=== PATIENT | male | born 1960 | race Caucasian/White ===

== ENCOUNTER 2017-09-21 16:02 | Emergency (ER) | payer BC ==
[~2017-09-21] VITALS: Ht 175.3 cm; Wt 74.5 kg
[2017-09-21 16:33] LABS: BASOPHIL (%) 0.5 % (0-1); BASOPHIL COUNT 0.1 K/uL (0-0.1); EOSINOPHIL (%) 3.9 % (0-5); EOSINOPHIL COUNT 0.4 K/uL (0-0.3); HEMATOCRIT 46.3 % (38.0-50.0); HEMOGLOBIN 15.9 G/DL (12.5-16.6); IMMATURE GRANULOCYTE (%) 0.3 % (0.0-0.7); LYMPHOCYTE (%) 21.2 % (15-42); MCHC 34.3 G/DL (30.0-36.0); MCV 98.9 FL (86-99); MONOCYTE (%) 8.4 % (3-12); MONOCYTE COUNT 0.8 K/uL (0-0.8); NEUTROPHIL (%) 65.7 % (45-76); NEUTROPHIL COUNT 6.1 K/uL (1.8-6.4); PLATELET COUNT 216 K/uL (156-360); RBC DIS.WIDTH-CV 12.5 % (11.8-14.6); RBC DIS.WIDTH-SD 45.5 % (39-53); RED BLOOD COUNT 4.68 M/uL (4.00-5.50); WHITE BLOOD COUNT 9.3 K/uL (4.1-10.2)
[2017-09-21 16:48] LABS: CHLORIDE 105 mEq/L (99-109); POTASSIUM 3.7 mEq/L (3.7-5.4); SODIUM 140 mEq/L (136-147)
[2017-09-21 16:50] LABS: GLUCOSE 98 mg/dL (70-99)
[2017-09-21 16:54] LABS: CREATININE 1.2 mg/dL (0.6-1.3)
[2017-09-21 16:55] LABS: UREA NITROGEN (BUN) 18 mg/dL (9-23)
[2017-09-21 17:04] LABS: GFR ESTIMATE (CALCULATED) > 59 mL/min/ (58.99-99999)
[2017-09-21 17:06] LABS: APPEARANCE CLEAR ((CLEAR)); BILIRUBIN NEGATIVE; BLOOD MODERATE; COLOR YELLOW ((YELLOW)); GLUCOSE (STRIP) NEGATIVE; KETONES 5; LEUKOCYTES NEGATIVE; NITRITE NEGATIVE; PROTEIN (STRIP) 30; SPECIFIC GRAVITY 1.029 (1.000-1.030); UROBILINOGEN 0.2 MG/DL (0.2-1.0)
[2017-09-21 17:10] LABS: BACTERIA NONE SEEN /HPF; EPITHELIAL CELLS RARE /HPF; MUCUS TRACE /LPF; RED BLOOD CELLS 0-5 /HPF (0-5); UCUL ADDED? NO; WHITE BLOOD CELLS 0-5 /HPF (0-5)
[2017-09-21 19:45] LABS: ALBUMIN 4.2 g/dL (3.2-4.8)
[2017-09-21 19:47] LABS: TOTAL PROTEIN 6.9 g/dL (6.4-8.3)
[2017-09-21 19:49] LABS: TOTAL BILIRUBIN 0.7 mg/dL (0.0-1.0)
[2017-09-21 19:50] LABS: ALKALINE PHOSPHATASE 88 IU/L (3-129)
[2017-09-21 19:53] LABS: ALT (GPT) 42 IU/L (3-49); AST (GOT) 38 IU/L (2-34); DIRECT BILIRUBIN 0.3 mg/dL (0.0-0.3)
[2017-09-21 19:54] LABS: CREATINE KINASE 88 IU/L (1-294); LIPASE 6 U/L (1.0-51.0)
[2017-09-21] MEDS ORDERED: PERCOCET 5/31 TABLET PO (21:48)
[2017-09-21] MEDS ORDERED: PREDNISONE20 MG PO (21:48)
[2017-09-21] MEDS ORDERED: LIDODERM 5% P1 PATCH TD (21:48)
[2017-09-21 22:09] VITALS: BP 137/91
== END 2017-09-21 22:11 | disposition home or self-care (01) ==
LOC: EME 16:02
DX: M54.16 Radiculopathy, lumbar region (principal); K82.8 Other specified diseases of gallbladder; I10 Essential (primary) hypertension; Z98.890 Other specified postprocedural states; Z88.6 Allergy status to analgesic agent
CPT/HCPCS: 74176; 76870; 80048; 80076; 81003; 82550; 83690; 85025; 99281; 99284; J2270; J7512

== ENCOUNTER 2017-11-27 01:04 | Observation (INO) | payer BC ==
[~2017-11-27] VITALS: Ht 175.3 cm; Wt 74.4 kg
[~2017-11-27 01:04] MED LIST: LIDODERM 5% P1 PATCH TD; PERCOCET 5/31 TABLET PO; PREDNISONE20 MG PO
[2017-11-27 01:25] LABS: HEMATOCRIT 41.7 % (38.0-50.0); HEMOGLOBIN 14.7 G/DL (12.5-16.6); MCHC 35.3 G/DL (30.0-36.0); MCV 96.5 FL (86-99); PLATELET COUNT 222 K/uL (156-360); RBC DIS.WIDTH-CV 11.6 % (11.8-14.6); RBC DIS.WIDTH-SD 41.3 % (39-53); RED BLOOD COUNT 4.32 M/uL (4.00-5.50); WHITE BLOOD COUNT 12.4 K/uL (4.1-10.2)
[2017-11-27 01:33] LABS: ALBUMIN 3.9 g/dL (3.2-4.8)
[2017-11-27 01:34] LABS: CHLORIDE 107 mEq/L (99-109); SODIUM 136 mEq/L (136-147)
[2017-11-27 01:36] LABS: GLUCOSE 142 mg/dL (70-99); TOTAL PROTEIN 6.5 g/dL (6.4-8.3)
[2017-11-27 01:38] LABS: TOTAL BILIRUBIN 0.7 mg/dL (0.0-1.0)
[2017-11-27 01:39] LABS: ALKALINE PHOSPHATASE 115 IU/L (3-129)
[2017-11-27 01:40] LABS: CREATININE 1.3 mg/dL (0.6-1.3); GFR ESTIMATE (CALCULATED) > 59 mL/min/ (58.99-99999)
[2017-11-27 01:41] LABS: AST (GOT) 27 IU/L (2-34); UREA NITROGEN (BUN) 42 mg/dL (9-23)
[2017-11-27 01:43] LABS: ALT (GPT) 41 IU/L (3-49)
[2017-11-27 01:48] LABS: APPEARANCE TURBID ((CLEAR)); BILIRUBIN NEGATIVE; BLOOD LARGE; COLOR YELLOW ((YELLOW)); GLUCOSE (STRIP) NEGATIVE; KETONES NEGATIVE; LEUKOCYTES NEGATIVE; NITRITE NEGATIVE; PROTEIN (STRIP) 30; SPECIFIC GRAVITY 1.025 (1.000-1.030); UROBILINOGEN 0.2 MG/DL (0.2-1.0)
[2017-11-27 02:11] LABS: BACTERIA 2+ /HPF; EPITHELIAL CELLS NONE SEEN /HPF; MUCUS NONE SEEN /LPF; RED BLOOD CELLS TNTC /HPF (0-5); UCUL ADDED? YES; WHITE BLOOD CELLS NONE SEEN /HPF (0-5)
[2017-11-27 02:12] LABS: URIC ACID CRYSTALS 3+ /HPF
[2017-11-27] MEDS ORDERED: LISINOPRIL10 MG PO (02:33)
[2017-11-27] MEDS ORDERED: HYDROCHLOROTH12.5 M3 PO (02:33)
[2017-11-27] MEDS ORDERED: FLOMAX0.4 MG PO (03:53)
[2017-11-27] MEDS ORDERED: PERCOCET 5/31 TABLET PO (03:53)
[2017-11-27 07:16] VITALS: BP 132/76
[2017-11-27] MEDS ORDERED: COZAAR50 MG PO (10:08)
[2017-11-27] MEDS ORDERED: ZANTAC150 MG PO (10:08)
[2017-11-27] MEDS ORDERED: ZYRTEC10 M3 PO (10:08)
[2017-11-27 13:20] VITALS: BP 134/80
[2017-11-27 16:00] VITALS: BP 134/66
[2017-11-27 19:49] VITALS: BP 131/69
[2017-11-28 00:20] VITALS: BP 122/68
[2017-11-28 04:28] VITALS: BP 133/69
[2017-11-28 07:27] VITALS: BP 132/71
[2017-11-28 08:18] LABS: HEMATOCRIT 38.5 % (38.0-50.0); MCH 33.1 PG (29.0-34.0); MCHC 32.7 G/DL (30.0-36.0); PLATELET COUNT 165 K/uL (156-360); RBC DIS.WIDTH-CV 11.9 % (11.8-14.6); RBC DIS.WIDTH-SD 44.1 % (39-53); RED BLOOD COUNT 3.81 M/uL (4.00-5.50); WHITE BLOOD COUNT 9.1 K/uL (4.1-10.2)
[2017-11-28 08:20] LABS: HEMOGLOBIN 12.6 G/DL (12.5-16.6)
[2017-11-28 08:50] LABS: CHLORIDE 111 MEQ/L (99-109); CREATININE 1.3 MG/DL (0.6-1.3); GFR ESTIMATE (CALCULATED) > 59 mL/min/ (58.99-99999); GLUCOSE 95 mg/dL (70-99); POTASSIUM 4.9 MEQ/L (3.7-5.4); SODIUM 139 MEQ/L (136-147); UREA NITROGEN (BUN) 24 mg/dL (9-23)
[2017-11-28 12:05] VITALS: BP 127/74
[2017-11-28] MEDS ORDERED: TAMSULOSIN HCL0.4 MG PO (15:38)
[2017-11-28] MEDS ORDERED: TORADOL10 MG PO (15:38)
[2017-11-28] MEDS ORDERED: ZOFRAN4 MG PO (15:38)
[2017-11-28 15:39] VITALS: BP 124/68
== END 2017-11-28 16:02 | disposition home or self-care (01) ==
LOC: EME 01:04 → EDOF 05:14 → 4SOUTH 05:14 → ENRESERV 05:16 → 4SOUTH 07:09
PROVIDERS: Internal Medicine
DX: N13.2 Hydronephrosis with renal and ureteral calculous obstruction (principal); Z80.51 Family history of malignant neoplasm of kidney; K58.9 Irritable bowel syndrome, unspecified; Z88.6 Allergy status to analgesic agent; D72.829 Elevated white blood cell count, unspecified; I10 Essential (primary) hypertension
CPT/HCPCS: 74176; 80048; 80053; 81003; 85027; 87086; 99281; 99285; G0378; J0696; J1644; J1885; J2405; J3010; J7030; J7050